=== PATIENT | male | born 1970 | race Two or more races ===

== ENCOUNTER 2018-08-27 00:47 | Emergency (ER) | payer MEDICARE, OTHER ==
[~2018-08-27] VITALS: Ht 193 cm; Wt 102.1 kg
[2018-08-27 01:50] VITALS: BP 125/81
--- NOTE | 2018-08-27 04:59 | NUR ---
Patient discharged to home in stable condition. Written and verbal after care instructions given. Patient verbalizes understanding of instruction. [employer] RESOURCES PROVIDED TO PT, PT REFUSED PAPERS STATING "I KNOW WHERE MY RESOURCES ARE".
== END 2018-08-27 05:12 | disposition home or self-care (01) ==
LOC: ER 00:47
DX: Z00.00 Encounter for general adult medical examination without abnormal findings (principal); F31.9 Bipolar disorder, unspecified; F10.10 Alcohol abuse, uncomplicated; F17.200 Nicotine dependence, unspecified, uncomplicated; Y90.9 Presence of alcohol in blood, level not specified; Z98.890 Other specified postprocedural states
CPT/HCPCS: 99283; A4606; Z7502